=== PATIENT | female | born 1990 | race Two or more races ===

== ENCOUNTER 2023-03-29 13:08 | Emergency (ER) | payer OTHER ==
[~2023-03-29] VITALS: Ht 152.4 cm; Wt 85.7 kg
[2023-03-29 13:30] VITALS: BP 114/69; TEMP 98.2; O2SAT 98
[2023-03-29] MEDS ORDERED: IBUP-1955 PO (14:39)
[2023-03-29] MEDS ORDERED: KETOROLAC TROMETHAMINE 15 MG/ML VIAL IM ONE (15:00)
== END 2023-03-29 14:50 | disposition home or self-care (01) ==
LOC: ER 13:16
DX: S63.501A Unspecified sprain of right wrist, initial encounter (principal); W22.8XXA Striking against or struck by other objects, initial encounter; Y93.89 Activity, other specified; Y92.89 Other specified places as the place of occurrence of the external cause; Y99.8 Other external cause status
CPT/HCPCS: 73110; 73130-TC